=== PATIENT | female | born 1950 | race Caucasian/White ===

== ENCOUNTER → 2016-12-07 | Outpatient (CLI) | payer MEDICARE, BC ==
[~2016-12-07] MED LIST: LORTAB 7.5-3251 EACH PO; REMERON30 MG PO; SYNTHROID75 MCG PO
--- NOTE | ~2016-12-07 | MY11 ---
[facility] A Service of [facility] RADIOLOGY TEXT RESULTS PATIENT: BALBIR KC LOCATION: [facility] : 50 UNIT #: [id number] AGE: [address]: Valentin Aly MD SEX: F ORDER DR: [id number] [facility] [address] [place], [place] [address] [id number] O MR#: [id number] #: [id number] NAME: BALBIR KC : 1950 SEX: F STUDY DATE/TIME: 12/07/2016 13:58 UNIT: [facility] ROOM: STUDY DESCRIPTION: MY Mammogram Screening Dig Domingo Attending Physician: Valentin Aly M.D. Ordering Physician: Valentin Aly M.D. Primary Care Physician: Valentin Aly M.D. MEDICAL IMAGING REPORT This report is preliminary unless electronic signature is present EXAM Screening mammogram, 12/07. INDICATIONS 66-year-old with no personal or family history of breast cancer. No current complaints. FINDINGS Routine digital screening views of both breasts were obtained. The study is reviewed with an FDA-approved CAD device. Comparison made with 07/05/15, 06/29/14. Breast parenchyma shows scattered fibroglandular densities. No new masses or suspicious microcalcifications are seen. IMPRESSION Negative mammogram. Routine screening in 1 year recommended. Patients over the age of 40 are entered into a reminder system with target due date for the next mammogram. A result letter will also be sent to the patient. BIRADS: 1 Negative. Dictated by... Navarro Lyons Jr., M.D. THIS IS AN ELECTRONICALLY VERIFIED REPORT Navarro Lyons Jr., M.D. at 12/08/2016 6:10 AM CINTHYA/cole [facility] A Service of [facility] RADIOLOGY TEXT RESULTS PATIENT: BALBIR KC LOCATION: [facility] : 50 UNIT #: [id number] AGE: [address]: Valentin Aly MD SEX: F ORDER DR: TD: 12/07/2016 17:09 JOB #: [id number] MEDICAL IMAGING REPORT Page 1 of 1 COPY
== END | disposition home or self-care (01) ==
LOC: CWCC 13:48
DX: Z12.31 Encounter for screening mammogram for malignant neoplasm of breast (principal)
CPT/HCPCS: G0202

== ENCOUNTER → 2016-12-28 | Outpatient (CLI) | payer MEDICARE, BC ==
--- NOTE | ~2016-12-28 | EKG ---
PATIENT: BALBIR KC UNIT #: [id number] Ventricular Rate: 73 BPM Atrial Rate: 73 BPM P-R Interval: 138 ms QRS Duration: 80 ms Q-T Interval: 382 ms QTC Calculation(Bezet): 420 ms P Mcleod: 41 degrees Calculated R Mcleod: 90 degrees Calculated T Mcleod: 56 degrees Diagnosis Line: Normal sinus rhythm Diagnosis Line: Rightward axis Diagnosis Line: Borderline ECG Diagnosis Line: No previous ECGs available Diagnosis Line: Confirmed by ANMOL ONTIVEROS MD ([id number]) on Diagnosis Line: 12/29/2016 6:44:33 AM INTERPRETING MD: BHAKTI
[2016-12-28 12:21] LABS: ALBUMIN SERUM 4.6 g/dL (3.5-5.0); BILIRUBIN,TOTAL 0.5 mg/dL (0.2-2.0); CALCIUM SERUM 9.7 mg/dL (8.4-10.2); CREATININE SERUM 0.7 mg/dL (0.6-1.4); GLOM FILT RATE Estimated 90.3 mL/min (>60); POTASSIUM 5.4 mmol/L (3.5-5.1); PROTEIN TOTAL SERUM 8.1 g/dL (6.0-8.3)
== END | disposition home or self-care (01) ==
LOC: CAMB 09:11
PROVIDERS: Surgery
DX: Z01.818 Encounter for other preprocedural examination (principal)
CPT/HCPCS: 36415; 80053; 93005

== ENCOUNTER → 2017-01-04 | Day surgery (SDC) | payer MEDICARE, BC ==
--- NOTE | ~2017-01-04 | OR ---
Unit #: [id number] #: [id number] Patient: BALBIR KC [id number] [address] [address] [id number] O MR#: [id number] NAME: BALBIR KC ROOM: Date of Procedure: 01/04/2017 Admission Date: 01/04/2017 Surgeon: Saurabh Dial Jr., M.D. : 1950 Attending Physician: Saurabh Dial Jr., M.D. Primary Care Physician: Valentin Aly M.D. OPERATIVE REPORT INDICATION FOR PROCEDURE The patient is a 66-year-old white female, who has had multiple surgical procedures in the past, who recently presented to the office complaining of chronic pain in the right lower quadrant abdominal wall. She is also felt nodularity there as well as questioning hernia in the area. She is brought in this time for exploration of this area, possible hernia repair found. PREOPERATIVE DIAGNOSIS Possible hernia right lower quadrant abdominal wall region. POSTOPERATIVE DIAGNOSIS No evidence of hernia, but evidence of attenuation of the fascia with weakness in the area. ANESTHESIA General with LMA and 0.5% Marcaine with epinephrine locally. PROCEDURE PERFORMED Excision of fatty tissue abdominal wall right lower quadrant with imbrication of the obliques with interrupted 0 Ethibond sutures. DESCRIPTION OF PROCEDURE The patient was positioned in supine position. After being anesthetized, she was prepped and draped in routine fashion for exploration of the right lower quadrant abdominal wall. A transverse incision was made approximately 3 to 4 inches in length. This was carried down through subcutaneous tissue with a lipomatous fat being removed from the abdominal wall and sent to pathology. This was done with the Bovie cautery and Metzenbaum scissors. After hemostasis was achieved, the area was checked. There was no evidence of any penetration of the muscle with the hernia, but attenuation of weakness. There were no masses and no other abnormalities. The obliques were then imbricated with interrupted 0 Ethibond sutures and after this was complete, the subcutaneous tissue was approximated with a continuous 3-0 Vicryl suture. The skin edges approximated with stainless-steel skin clips and skin stapling device. Sterile dressings were applied externally. Estimated blood loss less than 20 mL. The patient received less than 1000 mL crystalloid solution during the procedure. Sponges and instrument counts were correct x3. No drains used. No complications. The patient was taken to the recovery room with stable vital signs in satisfactory condition. Unit #: [id number] #: [id number] Patient: BALBIR KC Dictated by... Saurabh Dial Jr., MLuh HOLCOMB/charles TD: 01/04/2017 18:08 JOB #: [id number] OPERATIVE REPORT Page 1 of 1 X Saurabh Dial MD X PROCEDURE OPERATIVE NOTE
== END | disposition home or self-care (01) ==
LOC: CSUR 05:09
DX: E65 Localized adiposity (principal); M19.90 Unspecified osteoarthritis, unspecified site; G43.909 Migraine, unspecified, not intractable, without status migrainosus; E03.9 Hypothyroidism, unspecified; J43.9 Emphysema, unspecified; Z88.5 Allergy status to narcotic agent; Z88.8 Allergy status to other drugs, medicaments and biological substances; Z88.1 Allergy status to other antibiotic agents; Z79.891 Long term (current) use of opiate analgesic; Z79.899 Other long term (current) drug therapy; Z90.49 Acquired absence of other specified parts of digestive tract; Z90.710 Acquired absence of both cervix and uterus; Z98.890 Other specified postprocedural states
CPT/HCPCS: 84132; 88304; J0690; J2765; J3010

== ENCOUNTER 2017-03-04 16:19 | Emergency (ER) | payer MEDICARE, BC ==
[~2017-03-04] VITALS: Ht 152.4 cm; Wt 45.4 kg
--- NOTE | ~2017-03-04 | CT4 ---
[facility] A Service of [facility] RADIOLOGY TEXT RESULTS PATIENT: BALBIR KC LOCATION: [facility] : 50 UNIT #: [id number] AGE: [address]: Jose Luis Langston MD SEX: F ORDER DR: [id number] [facility] [address] [place], [place] [address] [id number] E MR#: [id number] Acc #: [id number] NAME: BALBIR KC. : 1950 SEX: F STUDY DATE/TIME: 03/04/2017 18:09 UNIT: [facility] ROOM: STUDY DESCRIPTION: CT Abd and Pelv Wo Cont Attending Physician: Jose Luis Langston M.D. Ordering Physician: Jose Luis Langston M.D. Primary Care Physician: Valentin Aly M.D. MEDICAL IMAGING REPORT This report is preliminary unless electronic signature is present EXAM CT of the abdomen and pelvis without contrast dated 03/04/[address] abdomen and pelvis without contrast dated 11/27/2016. HISTORY Persistent pain at operation site in the right lower quadrant and right groin since surgery January 04, 2017. Status post hernia repair. FINDINGS CT of the abdomen and pelvis were obtained without contrast in the axial plane followed by sagittal and coronal reformats. This CT examination was performed with one or more of the following radiation dose reduction techniques: automatic exposure control, adjustment of mA and/or kV according to patient size, and iterative reconstruction. LOWER CHEST: There is mild interstitial lung disease in bilateral lung bases involving bilateral lower lobes and to a lesser degree in the right middle lobe and left lingula. It does not appear to have changed in the interval. ABDOMEN: Lack of IV contrast limits evaluation of solid organs. No renal stones, hydronephrosis. No ureteral stones or hydroureters. Evaluation of solid organs is limited without contrast. There is a hypodense mass measuring 1.0 x 1.4 cm in the medial mid-right kidney, stable since prior study. It has an ISAAC of 3 Hounsfield units favoring a cyst. Calcifications are noted in the liver and spleen suggestive of old granulomatous disease. Status post cholecystectomy. Adrenal glands, pancreas do not demonstrate any significant abnormality. Lack of oral contrast limits evaluation of bowel loops. No evidence of bowel obstruction, free fluid or free air intraperitoneally. There is moderate STS. [facility] A Service of [facility] RADIOLOGY TEXT RESULTS PATIENT: BALBIR KC LOCATION: [facility] : 50 UNIT #: [id number] AGE: [address]: Jose Luis Langston MD SEX: F ORDER DR: stool burden in the colon. No evidence of free fluid, free air or acute inflammatory change. PELVIS: Status post cholecystectomy. Vaginal cuff is unremarkable. Urinary bladder and bowel loops do not demonstrate any significant abnormality. Mild degenerative changes are in the spine. IMPRESSION 1. No acute abnormality in the abdomen or pelvis. 2. No renal, ureteral or urinary bladder stones. 3. There is a 1.0 x 1.4 cm hypodense mass noted in the medial mid-right kidney, probably a simple cyst given the low Hounsfield units. Stable. 4. Gallbladder is within normal limits. Detection of appendix is difficult but there is no signs of acute inflammation in the right lower quadrant or in the adjacent right hemipelvis. 5. There are some interstitial changes noted in the lungs bibasilarly with likely mild pulmonary fibrosis. Dictated by... Katharine Rendon M.D. THIS IS AN ELECTRONICALLY VERIFIED REPORT Katharine Rendon M.D. at 03/07/2017 9:15 AM EFRAÍN/ramone TD: 03/05/2017 09:45 JOB #: [id number] MEDICAL IMAGING REPORT Page 1 of 1 COPY
[2017-03-04 16:50] LABS: BASOPHIL# 0.1 X10e3 (0-0.3); BASOPHIL% 1.1 % (0-2.5); EOSINOPHIL# 0.1 X10e3 (0-0.7); EOSINOPHIL% 0.7 % (0.0-7.0); HEMATOCRIT 43.4 % (35.0-45.0); HEMOGLOBIN 14.9 gm/dL (12.0-16.0); LYMPHOCYTE# 2.5 X10e3 (1.0-3.5); LYMPHOCYTE% 27.2 % (17.0-45.0); MEAN CELL VOLUME 97.5 FL (83-96); MEAN CORPUSCULAR HEMOGLOBIN 33.5 PG (28-34); MEAN CORPUSCULAR HGB CONC 34.3 g/dL (30-36); MEAN PLATELET VOLUME 7.3 FL (6.5-11.5); MONOCYTE# 0.7 X10e3 (0-1.0); MONOCYTE% 7.3 % (3.0-12.0); NEUTROPHIL% 63.7 % (40-75); PLATELET COUNT 273 X10e3 (140-420); RED BLOOD COUNT 4.45 X10e (3.90-5.30); RED CELL DISTRIBUTION WIDTH 14.1 % (11.0-15.5); WHITE BLOOD COUNT 9.3 X10e3 (4.0-10.5)
[2017-03-04 16:58] LABS: DIFF IND NO
[2017-03-04 17:21] LABS: ALBUMIN SERUM 4.6 g/dL (3.5-5.0); BILIRUBIN, DIRECT 0.1 mg/dL (0.0-0.2); BILIRUBIN,INDIRECT 0.8 mg/dL (0.0-0.9); BILIRUBIN,TOTAL 0.9 mg/dL (0.2-2.0); CALCIUM SERUM 9.7 mg/dL (8.4-10.2); CREATININE SERUM 0.9 mg/dL (0.6-1.4); GLOM FILT RATE Estimated 66.7 mL/min (>60); POTASSIUM 4.4 mmol/L (3.5-5.1); PROTEIN TOTAL SERUM 8.4 g/dL (6.0-8.3)
[2017-03-04 18:41] LABS: URINE SOURCE CLEAN CATCH
[2017-03-04 18:47] LABS: URINE APPEARANCE CLEAR; URINE BILIRUBIN NEG (NEG); URINE BLOOD TRACE (NEG); URINE COLOR YELLOW; URINE GLUCOSE NEG (NEG); URINE KETONE NEG (NEG); URINE LEUKOCYTE ESTERASE NEG (NEG); URINE NITRATE NEG (NEG); URINE PH 6.5 (5-8); URINE PROTEIN NEG (NEG); URINE SPECIFIC GRAVITY 1.012 (1.003-1.035); URINE UROBILINOGEN 0.2 MG/DL (NEG)
[2017-03-04 18:50] LABS: URINE BACTERIA AUWI NEG (NEGATIVE); URINE SQUAMOUS EPITHELIAL CELL NONE SEEN /[HPF]; UWBCS1 AUWI 0-2 (0-5)
[2017-03-04 18:52] LABS: CULTURE INDICATED? NO
== END 2017-03-04 19:11 | disposition home or self-care (01) ==
LOC: CED 16:19
DX: R10.31 Right lower quadrant pain (principal); Z90.49 Acquired absence of other specified parts of digestive tract; F17.210 Nicotine dependence, cigarettes, uncomplicated; Z88.5 Allergy status to narcotic agent; Z88.6 Allergy status to analgesic agent; Z88.8 Allergy status to other drugs, medicaments and biological substances
CPT/HCPCS: 36415; 74176; 80048; 80076; 81003; 83690; 85025; 99284